=== PATIENT | female | born 1965 | race Caucasian/White ===

== ENCOUNTER 2024-04-20 10:32 | Day surgery (SDC) | payer OTHER ==
[~2024-04-20] VITALS: Ht 172.7 cm; Wt 78.8 kg
[~2024-04-20 10:32] MED LIST: CYCL10 PO; Lactated Ringer's 1,000 ML IV ONE; OXYACE5T PO
[2024-04-20] MEDS ORDERED: NS 50 ML IV ONE (10:35)
[2024-04-20] MEDS ORDERED: CeFAZolin Sodium 2,000 MG VIAL ONE (10:35)
[2024-04-20] MEDS ORDERED: OZEMPIC2 MG/0.75 SQ (11:01)
[2024-04-20] MEDS ORDERED: PIOG30 PO (11:02)
[2024-04-20] MEDS ORDERED: METF500 PO (11:02)
[2024-04-20] MEDS ORDERED: Lactated Ringer's 1,000 ML IV ONE (11:05)
[2024-04-20] MEDS ORDERED: propofoL 50 ML IV ONE (11:17)
[2024-04-20] MEDS ORDERED: FentaNYL Citrate 50 MCG/ML 2 ML Injection ONE (11:51)
[2024-04-20] MEDS ORDERED: propofoL 40 ML IV ONE (11:52)
[2024-04-20] MEDS ORDERED: Ketorolac Tromethamine 30mg Vial ONE (11:54)
[2024-04-20] MEDS ORDERED: Dexamethasone Sod Phos 10 MG/ML 1ML VIAL ONE (11:54)
[2024-04-20] MEDS ORDERED: Ondansetron HCl 2 MG / ML 2ML Vial ONE (11:54)
[2024-04-20] MEDS ORDERED: Midazolam HCl 1MG / ML 2ML Vial ONE (12:20)
[2024-04-20] MEDS ORDERED: Lidocaine HCl 2% 10 ML SDA ONE (12:33)
[2024-04-20] MEDS ORDERED: Bupivacaine 0.5% W/EPI 1:200000 SDV 30ML INJ ONE ×2 (13:19)
[2024-04-20] MEDS ORDERED: HYDROcodone 5-APAP 325 TAB ONE (14:51)
[2024-04-20 14:59] VITALS: BP 116/71
--- NOTE | 2024-04-20 15:02 | NUR ---
04/20/24 1505 NICHOLAS AVILA IN TO SEE PATIENT AND FAMILY. PT TOLERATING PO INTAKE. DENIES PAIN OR NAUSEA. MEDICATED WITH HOME MEDS PRIOR TO DC.
== END 2024-04-20 15:19 | disposition home or self-care (01) ==
LOC: ORSCSDS 10:32
DX: M21.611 Bunion of right foot (principal); M77.41 Metatarsalgia, right foot; E11.9 Type 2 diabetes mellitus without complications; F41.9 Anxiety disorder, unspecified; Z79.84 Long term (current) use of oral hypoglycemic drugs; Z79.85 Long-term (current) use of injectable non-insulin antidiabetic drugs; Z79.899 Other long term (current) drug therapy
CPT/HCPCS: 82947; A9270; C1713; C1769; J0690; J1100; J1885; J2003; J2250; J2405; J2704; J3010; J7120